=== PATIENT | female | born 1960 | race Caucasian/White ===

== ENCOUNTER 2019-01-12 23:58 | Inpatient (IN) | payer OTHER ==
[~2019-01-12] VITALS: Ht 160 cm; Wt 111.4 kg
[2019-01-13] MEDS ORDERED: ACETAMINOPHEN 325 MG TAB PO PRN ×2 (01:00→03:00)
[2019-01-13] MEDS ORDERED: ONDANSETRON 4 MG INJ IV PRN ×2 (01:00→03:00)
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
[2019-01-13] MEDS ORDERED: GABA300C16 PO (02:52)
[2019-01-13] MEDS ORDERED: ATOR-2 PO (02:52)
[2019-01-13] MEDS ORDERED: LOSA25TA12 PO (02:52)
[2019-01-13] MEDS ORDERED: INSU500I SQ (02:52)
[2019-01-13] MEDS ORDERED: NPH,100I5 SQ (02:52)
[2019-01-13] MEDS ORDERED: hydrALAzine 20 MG INJ IV PRN (03:00)
[2019-01-13] MEDS ORDERED: GLUCAGON 1 MG INJ IM PRN (03:30)
[2019-01-13] MEDS ORDERED: GLUCOSE GEL 15 GRAM TUBE PO PRN ×2 (03:30)
[2019-01-13] MEDS ORDERED: GLUCOSE GEL 15 GRAM TUBE BUCCAL PRN (03:30)
[2019-01-13] MEDS ORDERED: DEXTROSE 50% 50 ML SYRINGE IV PRN ×2 (03:30)
--- NOTE | 2019-01-13 05:15 | HP ---
Date/Time of Note Date/Time of Note DATE: 01/13/19 TIME: 05:11 Assessment/Plan VTE Prophylaxis SCD applied (from Ns): No SCD contraindicated: other Pharmacological prophylaxis: heparin Assessment/Plan Hospital Course Assessment and plan: 58-year-old female who was transferred from outside hospital prior history of diabetes and hypertension who is been complaining of ataxia. 1. Ataxia: Again patient has not had any response with meclizine, symptoms have been chronic for the last few months. -We will check MRI of the brain to get neurology consult -TSH, A1c, lipid panel, consider PT consult 2. Diabetes: Follow-up A1c, continue sliding scale insulin 3. Hypertension: Blood pressure stable -Monitor, continue current medications Results 24hrs Laboratory Tests Test 01/13/19 01:21 Bedside Glucose 185 HPI/ROS Admit Date/Time Admit Date/Time Hx of Present Illness 58-year-old female who was transferred from outside hospital prior history of diabetes and hypertension who is been complaining of ataxia. Patient has had abnormal gait and weakness symptoms in her lower extremities for the last few months, getting progressively worse over the last few weeks. She went to her PCP about a month ago and was prescribed meclizine which did not relieve her symptoms. Denies any neuropathy or radiculopathy, no upper or lower GI bleeding, no nausea vomiting, fever chills, diarrhea constipation, chest pain or shortness of breath. She has been complaining of dizziness however. When she presented to the outside ER before being transferred over here she had a head CT which was negative for any acute findings, and her ENT exam did not produce any acute findings as well. PMH/Family/Social Past Medical History Medications Current Medications Ondansetron HCl (Zofran Inj) 4 mg ER BRIDGE PRN IV NAUSEA/VOMITING; Start 01/13/19 at 01:00; Stop 01/14/19 at 00:59 Acetaminophen (Tylenol Tab) 650 mg ER BRIDGE PRN PO .MILD PAIN 1-3 OR TEMP; Start 01/13/19 at 01:00; Stop 01/14/19 at 00:59 Ondansetron HCl (Zofran Inj) 4 mg Q6H PRN IV NAUSEA; Start 01/13/19 at 03:00 Acetaminophen (Tylenol Tab) 650 mg Q6H PRN PO PAIN LEVEL 1-5; Start 01/13/19 at 03:00 Hydralazine HCl (Apresoline) 10 mg Q6H PRN IV ELEVATED SYSTOLIC BP; Start 01/13/19 at 03:00 Diagnostic Test (Pha) (Accu-Chek) 1 ea 02 XX ; Start 01/14/19 at 02:00 Insulin Aspart (Novolog Insulin Pen) NOVOLOG *MILD* ALGORITHM WITH MEALS BEDTIME SC ; Start 01/13/19 at 08:00 Miscellaneous Information 1 ea NOTE XX ; Start 01/13/19 at 03:30 Glucose (Glutose) 15 gm Q15M PRN PO DECREASED GLUCOSE; Start 01/13/19 at 03:30 Glucose (Glutose) 22.5 gm Q15M PRN PO DECREASED GLUCOSE; Start 01/13/19 at 03:30 Dextrose (D50w Syringe) 25 ml Q15M PRN IV DECREASED GLUCOSE; Start 01/13/19 at 03:30 Dextrose (D50w Syringe) 50 ml Q15M PRN IV DECREASED GLUCOSE; Start 01/13/19 at 03:30 Glucagon (Glucagen) 1 mg Q15M PRN IM DECREASED GLUCOSE; Start 01/13/19 at 03:30 Glucose (Glutose) 15 gm Q15M PRN BUCCAL DECREASED GLUCOSE; Start 01/13/19 at 03:30 Coded Allergies: No Known Allergy (Unverified , 01/13/19) Past Surgical History Past Surgical Hx: other Social History Smoking Status: Never smoker Exam/Review of Systems Vital Signs Vitals Vital Signs Date Temp Pulse Resp B/P (MAP) Pulse Ox O2 O2 Flow FiO2 Time Delivery Rate 01/13/19 74 14 138/60 98 Room Air 04:00 (86) 01/13/19 97.5 00:11 Exam Exam GENERAL: lying in bed, no acute distress HEENT: Pupils equal, round, and reactive to light. EOMI. NECK: Supple LUNGS: Clear to auscultation bilaterally, no rales, wheezes or rhonchi. HEART: Regular rate and rhythm, no murmurs, clicks, rubs or gallops. ABDOMEN: Soft, NT, non-distended. Positive bowel sounds in all four quadrants. No rebound or guarding. EXTREMITIES: No lower extremity edema bilaterally NEURO: No focal deficits JAMIL MARIE Jan 13, 2019 05:15
[2019-01-13] MEDS ORDERED: LORAZEPAM 2 MG INJ IV STA (13:06)
[2019-01-13] MEDS ORDERED: LORAZEPAM 2 MG INJ ONE (13:08)
--- NOTE | 2019-01-13 15:02 | QN ---
Documentation Comment 58 yo danish speaking obese F w/dm2,neuropathy,htn tx frm OSH for unsteady gait/Dizziness/nausea.. MRI brain negative. Cont. w/PT. Resume home meds.start basal insulin. f/u neurology recs. Resume home meds Obtain Drug toxicology case d/w VALERY Underwood NP Jan 13, 2019 15:02
[2019-01-13 16:13] VITALS: PULSE 88
[2019-01-13 16:55] VITALS: BP 140/67; PULSE 86; RESP 20
[2019-01-13] MEDS: LOSARTAN 25 MG TAB PO SCH (17:08)
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
[2019-01-13] MEDS: INSULIN GLARGINE [LANTus] (100 UNITS/ML) SYG SC SCH (17:28)
[2019-01-13] MEDS: INSULIN ASPART [NOVOLOG] 3 ML PEN SC SCH ×4 (17:28→21:44)
[2019-01-13 17:29] VITALS: Ht 160 cm; Wt 111.4 kg
[2019-01-13] MEDS ORDERED: MECLIZINE 25 MG TAB PO PRN (17:30)
[2019-01-13] MEDS: HEPARIN 5,000 UNIT/1 ML VIAL SC SCH ×2 (17:52→21:44)
[2019-01-13 19:52] VITALS: BP 167/76; PULSE 84; RESP 20
[2019-01-13 20:00] VITALS: PULSE 77
[2019-01-13] MEDS ORDERED: ATORVASTATIN 80 MG TAB PO SCH (21:00)
[2019-01-13] MEDS: GABAPENTIN 300 MG CAP PO SCH (21:28)
[2019-01-13 23:20] VITALS: BP 188/77; PULSE 74; RESP 17
[2019-01-14] VITALS (10 sets, daily range): BP systolic 126–144; BP diastolic 64–71; PULSE 65–74; RESP 18
[2019-01-14] MEDS ORDERED: hydrALAzine 20 MG INJ IV PRN
[2019-01-14] MEDS: ACCU-CHEK XX SCH (02:00)
[2019-01-14] MEDS ORDERED: ACCU-CHEK XX SCH (02:00)
[2019-01-14] MEDS: INSULIN ASPART [NOVOLOG] 3 ML PEN SC SCH ×6 (03:36→21:26)
[2019-01-14] MEDS: GABAPENTIN 300 MG CAP PO SCH ×2 (08:19→20:43)
[2019-01-14] MEDS: LOSARTAN 25 MG TAB PO SCH (08:20)
[2019-01-14] MEDS: HEPARIN 5,000 UNIT/1 ML VIAL SC SCH (08:29)
[2019-01-14] MEDS: INSULIN GLARGINE [LANTus] (100 UNITS/ML) SYG SC SCH (11:22)
--- NOTE | 2019-01-14 11:24 | PN ---
Date/Time of Note Date/Time of Note DATE: 01/14/19 TIME: 11:24 Assessment/Plan VTE Prophylaxis Risk score (from Ns)>0 risk: 1 SCD applied (from Ns): No SCD contraindicated: other Pharmacological prophylaxis: NA/contraindicated Pharm contraindication: low risk/ambulating Lines/Catheters IV [facility] Saline Lock Assessment/Plan Hospital Course SUBJECTIVE: Lying in bed, ambulation to bathroom by self without any gait disturbance. However, she continues to report being dizzy at times. OBJECTIVE: Vital signs-see below PHYSICAL EXAM: Constitutional: Obese Iraqi-speaking female,not in acute distress. HEENT: Head atraumatic and normocephalic. Eyes: Extraocular muscles intact. Anicteric sclerae. Pupils equal bilaterally, reactive to light. NECK: Supple without lymph node. CHEST: Clear and good breath sounds equally. No wheezing. No rhonchi. HEART: S1, S2. Regular rate and rhythm. ABDOMEN: Soft/non tender with no rebound tenderness. Bowel sounds were present. EXTREMITIES: No cyanosis, clubbing or edema. NEUROLOGIC: Alert and oriented x3. No focal deficit. No sensory deficit. PSYCHOSOCIAL: No signs of depression. INTEGUMENTARY: No open wounds. ASSESSMENT AND PLAN:58 yo brazilian speaking obese F w/dm2,neuropathy,htn tx frm OSH for unsteady gait/Dizziness/nausea.. Transient gait disturbance/N/Dizziness, likely vertigo attacks -Imaging studies unremarkable for stroke. -Continue with physical therapy -Meclizine trial Diabetes type 2 -Basal/bolus insulin Diabetic neuropathy -Continue gabapentin Dyslipidemia -Continue statin. Will change dose to starting dose as there is no indication for high intensity statin at this time. DVT prophylaxis: SCDs/ambulation. Disposition: Overall, patient still continues to feel dizzy. She is being followed by neurology. Will start on meclizine scheduled dose. Patient to see by physical therapy. If no further inpatient work-up indicated, likely DC in a.m. with outpatient follow-up and ENT outpatient evaluation if symptoms recurs. Patient was seen in collaboration with Dr. Amos. Result Diagram: 01/13/19 0558 01/13/19 0558 Results 24hrs Laboratory Tests Test 01/13/19 15:39 01/13/19 16:42 01/13/19 18:41 01/13/19 21:25 Free Thyroxine 0.71 Ethyl Alcohol Level < 10.0 H Bedside Glucose 389 H 291 H Vitamin B12 Level 432 Test 01/14/19 02:49 01/14/19 05:31 01/14/19 07:59 01/14/19 10:55 Bedside Glucose 223 H 93 172 Phosphorus Level 2.7 Magnesium Level 1.7 Triglycerides Level 272 H Cholesterol Level 173 LDL Cholesterol, 83 Calculated HDL Cholesterol 36 Cholesterol/HDL Ratio 4.8 Exam/Review of Systems Exam Vitals Vital Signs Date Temp Pulse Resp B/P (MAP) Pulse Ox O2 O2 Flow FiO2 Time Delivery Rate 01/14/19 98.3 74 18 144/71 95 Room Air 11:12 (95) Intake and Output 01/13/19 01/13/19 01/14/19 1515:00 23:00 07:00 IntakeIntake Total 450 ml BalanceBalance 450 ml Results Results 24hrs Laboratory Tests Test 01/13/19 15:39 01/13/19 16:42 01/13/19 18:41 01/13/19 21:25 Free Thyroxine 0.71 Ethyl Alcohol Level < 10.0 H Bedside Glucose 389 H 291 H Vitamin B12 Level 432 Test 01/14/19 02:49 01/14/19 05:31 01/14/19 07:59 01/14/19 10:55 Bedside Glucose 223 H 93 172 Phosphorus Level 2.7 Magnesium Level 1.7 Triglycerides Level 272 H Cholesterol Level 173 LDL Cholesterol, 83 Calculated HDL Cholesterol 36 Cholesterol/HDL Ratio 4.8 Medications Medication Current Medications Ondansetron HCl (Zofran Inj) 4 mg Q6H PRN IV NAUSEA; Start 01/13/19 at 03:00 Acetaminophen (Tylenol Tab) 650 mg Q6H PRN PO PAIN LEVEL 1-5; Start 01/13/19 at 03:00 Diagnostic Test (Pha) (Accu-Chek) 1 ea 02 XX ; Start 01/14/19 at 02:00 Insulin Aspart (Novolog Insulin Pen) NOVOLOG *MILD* ALGORITHM WITH MEALS BEDTIME SC Last administered on 01/14/19at 03:36; Admin Dose 2 UNIT; Start 01/13/19 at 08:00 Miscellaneous Information 1 ea NOTE XX ; Start 01/13/19 at 03:30 Glucose (Glutose) 15 gm Q15M PRN PO DECREASED GLUCOSE; Start 01/13/19 at 03:30 Glucose (Glutose) 22.5 gm Q15M PRN PO DECREASED GLUCOSE; Start 01/13/19 at 03:30 Dextrose (D50w Syringe) 25 ml Q15M PRN IV DECREASED GLUCOSE; Start 01/13/19 at 03:30 Dextrose (D50w Syringe) 50 ml Q15M PRN IV DECREASED GLUCOSE; Start 01/13/19 at 03:30 Glucagon (Glucagen) 1 mg Q15M PRN IM DECREASED GLUCOSE; Start 01/13/19 at 03:30 Glucose (Glutose) 15 gm Q15M PRN BUCCAL DECREASED GLUCOSE; Start 01/13/19 at 03:30 Heparin Sodium (Porcine) (Heparin (5000 Units/1ml)) 5,000 unit BID SC Last administered on 01/14/19 08:29; Admin Dose 5,000 UNIT; Start 01/13/19 at 09:00 Atorvastatin Calcium (Lipitor) 80 mg QHS PO Last administered on 01/13/19 21:28; Admin Dose 80 MG; Start 01/13/19 at 21:00 Gabapentin (Neurontin) 300 mg BID PO Last administered on 01/14/19 08:19; Admin Dose 300 MG; Start 01/13/19 at 21:00 Losartan Potassium (Cozaar) 25 mg DAILY PO Last administered on 01/14/19 08:20; Admin Dose 25 MG; Start 01/13/19 at 16:00 Insulin Glargine (Lantus) 17 units DAILY@0800 SC Last administered on 01/13/19 17:28; Admin Dose 17 UNITS; Start 01/13/19 at 16:00 Insulin Aspart (Novolog Insulin Pen) 5 unit WITH MEALS SC Last administered on 01/14/19 08:29; Admin Dose 5 UNIT; Start 01/13/19 at 18:00 Meclizine HCl (Antivert) 25 mg TID PRN PO dizziness/vertigo; Start 01/13/19 at 17:30 Hydralazine HCl (Apresoline) 10 mg Q6H PRN IV ELEVATED BLOOD PRESSURE; Start 01/14/19 at 00:00 VALERY POLANCO NP Jan 14, 2019 11:24
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
[2019-01-14] MEDS: MECLIZINE 12.5 MG TAB PO SCH ×2 (12:50→20:42)
[2019-01-14] MEDS ORDERED: INSULIN ASPART [NOVOLOG] 3 ML PEN SC SCH (18:00)
[2019-01-14] MEDS ORDERED: ATORVASTATIN 20 MG TAB PO SCH (21:00)
[2019-01-14] MEDS ORDERED: ATORVASTATIN 40 MG TAB PO SCH (21:00)
[2019-01-14] MEDS ORDERED: ATORVASTATIN 10 MG TAB PO SCH (21:00)
[2019-01-15] VITALS: BP 134/67; PULSE 60; RESP 18
[2019-01-15] MEDS: ACCU-CHEK XX SCH (02:00)
[2019-01-15] MEDS ORDERED: INSULIN ASPART [NOVOLOG] 3 ML PEN SC ONE (02:30)
[2019-01-15 04:00] VITALS: BP 133/67; PULSE 60; PULSE 75; RESP 19
[2019-01-15] MEDS ORDERED: ACCU-CHEK XX ONE (04:30)
--- NOTE | 2019-01-15 07:19 | DS ---
Date/Time of Note Date/Time of Note DATE: 01/15/19 TIME: 07:15 Discharge Summary Admission/Discharge Info Admit Date/Time Jan 13, 2019 at 00:40 Discharge Date/Time January 15, 2019 Discharge Diagnosis Postconcussion vertigo; history concussion; hypertension; hyperlipidemia; morbid obesity; diabetes mellitus type 2; Patient Condition: Fair Consults Neurology Procedures MRI scan brain IMPRESSION: 1. No acute intracranial hemorrhage, infarction or mass. 2. Moderate chronic small vessel ischemic changes. 3. Mild to moderate generalized cerebral volume loss. Hx of Present Illness HPI This 58-year female is capitated here from [place] and was admitted for ataxia and urinary tract infection. Patient's transfer chart was reviewed. Hospitalist made aware Hx of Present Illness 58-year-old female who was transferred from outside hospital prior history of diabetes and hypertension who is been complaining of ataxia. Patient has had abnormal gait and weakness symptoms in her lower extremities for the last few months, getting progressively worse over the last few weeks. She went to her PCP about a month ago and was prescribed meclizine which did not relieve her symptoms. Denies any neuropathy or radiculopathy, no upper or lower GI bleeding, no nausea vomiting, fever chills, diarrhea constipation, chest pain or shortness of breath. She has been complaining of dizziness however. When she presented to the outside ER before being transferred over here she had a head CT which was negative for any acute findings, and her ENT exam did not produce any acute findings as well. Hx of Present Illness 58-year-old female who was transferred from outside hospital prior history of diabetes and hypertension who is been complaining of ataxia. Patient has had abnormal gait and weakness symptoms in her lower extremities for the last few months, getting progressively worse over the last few weeks. She went to her PCP about a month ago and was prescribed meclizine which did not relieve her symptoms. Denies any neuropathy or radiculopathy, no upper or lower GI bleeding, no nausea vomiting, fever chills, diarrhea constipation, chest pain or shortness of breath. She has been complaining of dizziness however. When she presented to the outside ER before being transferred over here she had a head CT which was negative for any acute findings, and her ENT exam did not produce any acute findings as well. negative unless noted otherwise in HPI Hospital Course 58-year-old woman who was admitted with the above complaints. She worked with physical therapy after clearance and evaluation by neurology. Please note her neurologic evaluation did not demonstrate any structural abnormalities. Physical therapy feels that she would do well to continue with outpatient vestibular physical therapy protocols. She is stable and ready for discharge at this time. She has good rehabilitation potential she is capacity for medical decision-making she has no known communicable to diseases Home Meds Reported Medications Insulin Regular, Human (Humulin R U-500 Kwikpen) 500 Unit/1 Ml Insuln.pen, SQ 01/13/19 NPH, Human Insulin Isophane (Humulin N Kwikpen) 100 Unit/1 Ml Insuln.pen, 25 UNIT SQ BID WITH MEALS, EA 01/13/19 Gabapentin* (Gabapentin*) 300 Mg Capsule, 300 MG PO BID for 30 Days, #60 01/13/19 Losartan Potassium* (Losartan Potassium*) 25 Mg Tablet, 25 MG PO DAILY for 30 Days, #30 01/13/19 Atorvastatin* (Atorvastatin*) 80 Mg Tablet, 80 MG PO QHS for 30 Days, #30 01/13/19 Follow-up Plan Primary care physician in 1 to 2 weeks Primary Care Provider As per health care [place] Time spent on discharge: > 30 minutes Pending Labs Laboratory Tests Test 01/14/19 07:59 01/14/19 10:55 01/14/19 11:53 01/14/19 16:46 Bedside 93 172 241 279 Glucose mg/dL (70-220) mg/dL (70-220) mg/dL (70-220) mg/dL (70-220) Test 01/14/19 20:52 01/14/19 23:55 01/15/19 01:57 01/15/19 04:38 Bedside 280 210 182 Glucose mg/dL (70-220) mg/dL (70-220) mg/dL (70-220) Urine Color YELLOW (YELLOW ) Urine Clarity CLEAR (CLEAR) Urine pH 6.0 (5.0-9.0) Urine Specific 1.015 (1.003-1 Wisdom .030) Urine Ketones NEGATIVE mg/dL (NEGATIV E) Urine Nitrite NEGATIVE mg/dL (NEGATIV E) Urine NEGATIVE Bilirubin mg/dL (NEGATIV E) Urine NEGATIVE Urobilinogen mg/dL (NEGATIV E) Urine Leukocyte NEGATIVE Delphine/u Esterase l Urine 2 /HPF (0-5) Microscopic RBC Urine 0 /HPF (0-5) Microscopic WBC Urine 1+ Hemoglobin mg/dL (NEGATIV E) Urine Glucose 1+ mg/dL (NEGATIV E) Urine Total 1+ Protein mg/dl (NEGATIV E) Urine Opiates Negative (NEGA Screen TIVE) Urine Negative (NEGA Barbiturates TIVE) Urine Negative (NEGA Amphetamines TIVE) Screen Urine Negative (NEGA Benzodiazepines TIVE) Screen Urine Cocaine Negative (NEGA Screen TIVE) Urine Negative (NEGA Cannabinoids TIVE) MAMI ZUNIGA MD Jan 15, 2019 07:19
--- NOTE | 2019-01-15 07:20 | PDOCDIS ---
Discharge Instructions DIAGNOSIS Discharge Diagnosis Postconcussion vertigo; history concussion; hypertension; hyperlipidemia; morbid obesity; diabetes mellitus type 2; CONDITION [id number] Patient Condition: [id number] Fair HOME CARE INSTRUCTIONS: [id number] Special Diet: [id number] Diabetic diet ACTIVITY: [id number] Activity Restrictions: [id number] Slowly Increase Activity FOLLOW UP/APPOINTMENTS Follow-up Plan Primary care physician in 1 to 2 weeks, for return referral to physical therapy- vestibular rehabilitation MAMI ZUNIGA MD Jan 15, 2019 07:20
[2019-01-15] MEDS ORDERED: GABA300C16 PO (07:21)
[2019-01-15] MEDS ORDERED: MECL12.574 PO (07:21)
[2019-01-15 07:27] VITALS: BP 141/71; PULSE 61; RESP 18
[2019-01-15] MEDS: INSULIN ASPART [NOVOLOG] 3 ML PEN SC SCH (07:39)
[2019-01-15] MEDS ORDERED: INSULIN ASPART [NOVOLOG] 3 ML PEN SC SCH (08:00)
[2019-01-15] MEDS ORDERED: INSULIN GLARGINE [LANTus] (100 UNITS/ML) SYG SC SCH ×2 (08:00)
[2019-01-15 08:02] VITALS: PULSE 74
[2019-01-15] MEDS: MECLIZINE 12.5 MG TAB PO SCH (08:48)
[2019-01-15] MEDS: GABAPENTIN 300 MG CAP PO SCH (08:48)
[2019-01-15] MEDS: LOSARTAN 25 MG TAB PO SCH (08:48)
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
== END 2019-01-15 09:34 | disposition home or self-care (01) | DRG 149 ==
LOC: E/R 23:58 → 6WM 01-13 00:40
PROVIDERS: ADMIT Hospitalist; ATTEND Hospitalist
DX: R42 Dizziness and giddiness (principal); Z68.41 Body mass index [BMI] 40.0-44.9, adult; F07.81 Postconcussional syndrome; I10 Essential (primary) hypertension; E11.40 Type 2 diabetes mellitus with diabetic neuropathy, unspecified; E78.5 Hyperlipidemia, unspecified; E66.01 Morbid (severe) obesity due to excess calories
CPT/HCPCS: 70551; 80048; 80061; 80307; 81001; 82607; 82962; 83036; 83735; 84100; 84425; 84439; 84443; 85025; 86592; 97162; J0360; J1644; J1815; J2060

== ENCOUNTER 2019-04-26 06:10 | Day surgery (SDC) | payer OTHER ==
[2019-04-26] VITALS (9 sets, daily range): BP systolic 134–144; BP diastolic 58–70; PULSE 66–79; RESP 16–20; Ht 158.8 cm; Wt 111.5 kg
[~2019-04-26] VITALS: Ht 158.8 cm; Wt 111.5 kg
[~2019-04-26 06:10] MED LIST: ATOR-2 PO; ATOR10TA65 PO; GABA300C16 PO; INSU500I SQ; LOSA25TA12 PO; MECL-77 PO; MECL12.574 PO; NITR-58 PO; NPH,100I5 SQ
[2019-04-26] MEDS ORDERED: MOXIFLOXACIN 0.5% 3 ML OPH OPER SCH (07:30)
[2019-04-26] MEDS ORDERED: TROPICAMIDE 1% 15 ML OPH OPER SCH (07:30)
[2019-04-26] MEDS ORDERED: CYCLOPENTOLATE/PHENYLEPH 2 ML OPH OPER SCH (07:30)
[2019-04-26] MEDS ORDERED: DICLOFENAC 0.1% 2.5 ML OPH OPER SCH (07:30)
[2019-04-26] MEDS ORDERED: SOD CHLORIDE 0.9% 1,000 ML IV SCH (07:30)
[2019-04-26] MEDS ORDERED: ACETAMINOPHEN 500 MG TAB PO ONE (08:30)
[2019-04-26] MEDS ORDERED: DEXAMETHASONE 4 MG/ML 1 ML INJ INJ ONE (08:57)
[2019-04-26] MEDS ORDERED: CEFAZOLIN 1 GM INJ INJ ONE (08:57)
[2019-04-26] MEDS ORDERED: CARBACHOL 0.01% 1.5 ML OPH INJ INJ ONE (08:57)
[2019-04-26] MEDS ORDERED: DIPHENHYDRAMINE 50 MG INJ IV PRN (09:00)
[2019-04-26] MEDS ORDERED: ONDANSETRON 4 MG INJ IV PRN (09:00)
[2019-04-26] MEDS ORDERED: LABETALOL HCL 20MG INJ IV PRN (09:00)
[2019-04-26] MEDS ORDERED: ACETAMINOPHEN 500 MG TAB PO PRN (09:00)
[2019-04-26] MEDS ORDERED: FENTAnyl 50 MCG/ML VIAL IV PRN (09:00)
[2019-04-26] MEDS ORDERED: ALBUTEROL 0.083% (NEB) 2.5 MG/3 ML AMP HHN PRN (09:00)
[2019-04-26] MEDS ORDERED: ACETAMINOPHEN 325 MG TAB PO PRN (09:00)
[2019-04-26] MEDS ORDERED: OXYCODONE/ACETAMINOPHEN (5/325) TAB PO PRN (09:00)
[2019-04-26] MEDS ORDERED: hydrALAzine 20 MG INJ IV PRN (09:00)
== END 2019-04-26 11:02 | disposition home or self-care (01) ==
LOC: SUR 06:10 → SDS 06:10 → SUR 11:02
PROVIDERS: ATTEND Ophthalmology
DX: H25.11 Age-related nuclear cataract, right eye (principal); I10 Essential (primary) hypertension; E11.9 Type 2 diabetes mellitus without complications; Z79.4 Long term (current) use of insulin
CPT/HCPCS: 66984; 82962; J0690; J1100; J3010; V2632; Z7512; Z7610; J2250

== ENCOUNTER 2019-06-07 05:46 | Day surgery (SDC) | payer OTHER ==
[2019-06-03 14:29] VITALS: BMI 45.8
[~2019-06-07] VITALS: Ht 157.5 cm; Wt 111.7 kg
[2019-06-07] VITALS (9 sets, daily range): BP systolic 131–153; BP diastolic 54–77; PULSE 64–68; RESP 11–18; Ht 157.5 cm; Wt 111.7 kg
[~2019-06-07 05:46] MED LIST changes: -ATOR-2 PO; +CARBACHOL 0.01% 1.5 ML OPH INJ ONE; +CARBACHOL 0.01% 1.5 ML OPH INJ RIGHT EYE ONE; +CEFAZOLIN 1 GM INJ INJ ONE; +CEFAZOLIN 1 GM INJ ONE; +CYCLOPENTOLATE/PHENYLEPH 2 ML OPH RIGHT EYE SCH; +DEXAMETHASONE 4 MG/ML 1 ML INJ INJ ONE; +DEXAMETHASONE 4 MG/ML 1 ML INJ ONE; +DICLOFENAC 0.1% 2.5 ML OPH RIGHT EYE SCH; +LIDOCAINE 1% (MPF) 10 ML INJ ONE; +LIDOCAINE 4% (MPF) 5 ML INJ INJ ONE; +LIDOCAINE 4% (MPF) 5 ML INJ ONE; -MECL12.574 PO; +MIDAZOLAM 1 MG/ML 2 ML INJ ONE; +MOXIFLOXACIN 0.5% 3 ML OPH RIGHT EYE SCH; +NA HYALURONATE/CHONDROITIN 0.5 ML SYG ONE; +PROPOFOL 20 ML ONE; +SOD CHLORIDE 0.9% 1,000 ML IV SCH; +TROPICAMIDE 1% 15 ML OPH RIGHT EYE SCH
[2019-06-07] MEDS ORDERED: SOD CHLORIDE 0.9% 1,000 ML IV SCH (06:00)
[2019-06-07] MEDS ORDERED: CYCLOPENTOLATE/PHENYLEPH 2 ML OPH OPER SCH (06:00)
[2019-06-07] MEDS ORDERED: DICLOFENAC 0.1% 2.5 ML OPH OPER SCH (06:00)
[2019-06-07] MEDS ORDERED: MOXIFLOXACIN 0.5% 3 ML OPH OPER SCH (06:00)
[2019-06-07] MEDS ORDERED: TROPICAMIDE 1% 15 ML OPH OPER SCH (06:00)
[2019-06-07] MEDS ORDERED: PROPOFOL 200 MG INJ ONE (06:40)
[2019-06-07] MEDS ORDERED: LIDOCAINE 2% (SDV) 5 ML INJ ONE (06:40)
[2019-06-07] MEDS ORDERED: CEFAZOLIN 1 GM INJ ONE (06:40)
[2019-06-07] MEDS ORDERED: DEXAMETHASONE 4 MG/ML 1 ML INJ ONE ×2 (06:41→06:42)
[2019-06-07] MEDS ORDERED: GENTAMICIN 80 MG INJ ONE (06:41)
[2019-06-07] MEDS ORDERED: EPINEPHrine 1 MG INJ ONE (06:41)
[2019-06-07] MEDS ORDERED: CARBACHOL 0.01% 1.5 ML OPH INJ ONE (06:41)
[2019-06-07] MEDS ORDERED: LIDOCAINE 4% (MPF) 5 ML INJ ONE (06:43)
[2019-06-07] MEDS ORDERED: CEFAZOLIN 1 GM INJ INJ ONE (07:00)
[2019-06-07] MEDS ORDERED: CARBACHOL 0.01% 1.5 ML OPH INJ RIGHT EYE ONE (07:00)
[2019-06-07] MEDS ORDERED: DEXAMETHASONE 4 MG/ML 1 ML INJ INJ ONE (07:00)
[2019-06-07] MEDS ORDERED: LIDOCAINE 4% (MPF) 5 ML INJ INJ ONE (07:00)
[2019-06-07] MEDS ORDERED: MIDAZOLAM 1 MG/ML 2 ML INJ ONE (07:37)
[2019-06-07] MEDS ORDERED: LABETALOL HCL 20MG INJ IV PRN (08:30)
[2019-06-07] MEDS ORDERED: ACETAMINOPHEN 500 MG TAB PO PRN (08:30)
[2019-06-07] MEDS ORDERED: ACETAMINOPHEN 325 MG TAB PO PRN (08:30)
[2019-06-07] MEDS ORDERED: ALBUTEROL 0.083% (NEB) 2.5 MG/3 ML AMP HHN PRN (08:30)
[2019-06-07] MEDS ORDERED: OXYCODONE/ACETAMINOPHEN (5/325) TAB PO PRN (08:30)
[2019-06-07] MEDS ORDERED: FENTAnyl 50 MCG/ML VIAL IV PRN (08:30)
[2019-06-07] MEDS ORDERED: hydrALAzine 20 MG INJ IV PRN (08:30)
[2019-06-07] MEDS ORDERED: ONDANSETRON 4 MG INJ IV PRN (08:30)
[2019-06-07] MEDS ORDERED: DIPHENHYDRAMINE 50 MG INJ IV PRN (08:30)
== END 2019-06-07 09:09 | disposition home or self-care (01) ==
LOC: SDS 05:46
PROVIDERS: ATTEND Ophthalmology
DX: H25.12 Age-related nuclear cataract, left eye (principal); I10 Essential (primary) hypertension; E78.5 Hyperlipidemia, unspecified; E11.9 Type 2 diabetes mellitus without complications; E66.01 Morbid (severe) obesity due to excess calories; Z68.42 Body mass index [BMI] 45.0-49.9, adult
CPT/HCPCS: 66984; 82962; J0171; J0690; J1100; J1580; J2250; V2632; Z7512; Z7610